=== PATIENT | male | born 1955 | race African-American/Black ===

== ENCOUNTER 2017-01-31 20:05 | Emergency (ER) | payer OTHER, MEDICARE ==
[~2017-01-31] VITALS: Ht 172.7 cm; Wt 81.6 kg
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
== END 2017-01-31 23:16 | disposition home or self-care (01) ==
LOC: CED 20:05
DX: S01.111A Laceration without foreign body of right eyelid and periocular area, initial encounter (principal); I25.2 Old myocardial infarction; I10 Essential (primary) hypertension; E11.9 Type 2 diabetes mellitus without complications; V49.00XA Driver injured in collision with unspecified motor vehicles in nontraffic accident, initial encounter; Y92.410 Unspecified street and highway as the place of occurrence of the external cause
CPT/HCPCS: 70450; 72040; 99284